=== PATIENT | female | born 1960 | race African-American/Black ===

== ENCOUNTER 2019-07-16 11:35 | Inpatient (IN) | payer MEDICAID ==
[~2019-07-16] VITALS: Ht 162.6 cm; Wt 83.9 kg
[2019-07-16] MEDS ORDERED: VANCOMYCIN 1 G PREMIX 200 ML IV ONE (12:30)
[2019-07-16] MEDS ORDERED: PIPERACILLIN/TAZ 3.375G PREMIX 50 ML IV ONE (12:30)
[2019-07-16] MEDS ORDERED: SODIUM CHLORIDE 0.9% 1000ML BAG (SEPSIS BOLUS) IV ONE (12:30)
[2019-07-16] MEDS ORDERED: KETOROLAC 15MG/ML VIAL IV ONE (12:45)
[2019-07-16 13:18] LABS: BASOPHILS % 0.7 % (0.0-2.0); HEMATOCRIT. 34.1 % (36.0-48.0); HEMOGLOBIN. 11.2 g/dL (12.0-16.0); MEAN CORPUSCULAR HEMOGLOBIN 28.6 pg (28.0-32.0); MEAN CORPUSCULAR VOLUME 87.1 fL (81.0-99.0); MEAN PLATELET VOLUME 7.2 fl (7.4-10.4); MONOCYTES % 11.6 % (2.0-8.0); NEUTROPHILS % 60.7 % (40.0-76.0); PLATELET 384 x1000/uL (130-400); RED BLOOD CELL COUNT 3.91 mill/uL (4.2-5.4); RED CELL DISTRIBUTION WIDTH 15.2 % (11.6-14.6)
[2019-07-16 13:24] LABS: INR 1.1; PROTHROMBIN TIME 11.1 sec (9.6-11.0)
[2019-07-16 13:25] LABS: CHLORIDE 103 mEq/L (98-107)
[2019-07-16 16:19] LABS: CLARITY URINE TURBID (CLEAR); COLOR URINE YELLOW (YELLOW); KETONES URINE NEGATIVE (NEGATIVE); LEUKOCYTE ESTERASE URINE 3+ (NEGATIVE); NITRITE URINE POSITIVE (NEGATIVE); OCCULT BLOOD URINE 3+ (NEGATIVE); PH URINE 5.5 (4.5-8.0); PROTEIN URINE 1+ (NEGATIVE); SPECIFIC GRAVITY URINE 1.015 (1.005-1.030); UROBILINOGEN URINE 0.2 E.U./dL (0.2-1.0)
[2019-07-16] MEDS ORDERED: CLONIDINE 0.1MG TABLET PO PRN (19:15)
[2019-07-16] MEDS ORDERED: DOCUSATE SODIUM 100MG CAPSULE PO PRN (19:15)
[2019-07-16] MEDS ORDERED: ACETAMINOPHEN 650MG/20.3ML UDC GT PRN (19:15)
[2019-07-16] MEDS ORDERED: ONDANSETRON HCL 4MG/2ML INJ IV PRN (19:15)
[2019-07-16] MEDS ORDERED: HYDROCODONE/ACETAMINOPHEN 10/325MG TABLET PO PRN (19:15)
[2019-07-16] MEDS ORDERED: IPRATROPIUM/ALBUTEROL 0.5-3(2.5)MG/3ML NEB HHN PRN (19:15)
[2019-07-16] MEDS ORDERED: HYDROCODONE/ACETAMINOPHEN 5/325MG TABLET PO PRN (19:15)
[2019-07-16] MEDS ORDERED: ACETAMINOPHEN 650MG SUPP PR PRN (19:15)
[2019-07-16] MEDS ORDERED: NA PHOS,M-B/NA PHOS,DI-BA ENEMA 118ML PR PRN (19:15)
[2019-07-16] MEDS ORDERED: DIPHENHYDRAMINE 50MG/ML VIAL IV PRN (19:15)
[2019-07-16] MEDS ORDERED: MAGNESIUM/ALUMINUM HYDROXIDE/SIMETHICONE 30ML UDC PO PRN (19:15)
[2019-07-16] MEDS ORDERED: GUAIFENESIN 200MG/10ML SUGAR FREE UDC PO PRN (19:15)
[2019-07-16] MEDS ORDERED: ACETAMINOPHEN 325MG TABLET PO PRN (19:15)
[2019-07-16] MEDS ORDERED: ENOXAPARIN 40MG/0.4ML SYR SUBCUT SCH (19:15)
[2019-07-16 21:45] VITALS: BP 102/63
[2019-07-16] MEDS ORDERED: SODIUM CHLORIDE 0.9% INJ 3ML FLUSH IVF SCH (22:00)
[2019-07-16] MEDS ORDERED: LEVOFLOXACIN 500MG PREMIX 100 ML IV NR (23:00)
[2019-07-17] VITALS: BP 99/62
[2019-07-17] MEDS: SODIUM CHLORIDE 0.45% 1,000 ML IV SCH ×2 (00:38→20:39)
[2019-07-17] MEDS: ENOXAPARIN 30MG/0.3ML SYR SUBCUT SCH ×3 (00:40→20:40)
[2019-07-17] MEDS ORDERED: VIRE PO (02:38)
[2019-07-17] MEDS ORDERED: NIFE10CA PO (02:38)
[2019-07-17] MEDS ORDERED: OMEP20TA15 PO (02:38)
[2019-07-17] MEDS ORDERED: CITA10TA16 PO (02:38)
[2019-07-17] MEDS ORDERED: LISI40TA4 PO (02:38)
[2019-07-17] MEDS ORDERED: FLUT9.9S NS (02:38)
[2019-07-17] MEDS ORDERED: LOPI1TAB PO (02:38)
[2019-07-17] MEDS ORDERED: MULT-1146 PO (02:38)
[2019-07-17] MEDS ORDERED: FERR325T6 PO (02:38)
[2019-07-17] MEDS ORDERED: ATOR20TA PO (02:38)
[2019-07-17] MEDS ORDERED: GEMF600T5 PO (02:38)
[2019-07-17] MEDS ORDERED: POTA-81 PO (02:38)
[2019-07-17 08:00] VITALS: BP 102/55
[2019-07-17 08:35] LABS: CHLORIDE 106 mEq/L (98-107)
[2019-07-17 08:45] LABS: HDL CHOLESTEROL 39 mg/dL (40-59); LDL CHOLESTEROL 149 mg/dL (5-100)
[2019-07-17] MEDS ORDERED: CEPH-569 MT (11:42)
[2019-07-17] MEDS ORDERED: SODIUM POLYSTYRENE SULFONATE 15 G/60 ML BOT PO NR (12:00)
[2019-07-17] MEDS ORDERED: LEVOFLOXACIN 500MG PREMIX 100 ML IV SCH (14:00)
[2019-07-17 16:00] VITALS: BP 100/57
[2019-07-17 16:17] LABS: BASOPHILS % 0.4 % (0.0-2.0); EOSINOPHILS % 1.7 % (0.0-5.0); HEMATOCRIT. 32.8 % (36.0-48.0); HEMOGLOBIN. 10.7 g/dL (12.0-16.0); LYMPHOCYTES % 24.8 % (20.0-50.0); MEAN CORPUSCULAR HEMOGLOBIN 28.5 pg (28.0-32.0); MEAN CORPUSCULAR VOLUME 87.2 fL (81.0-99.0); MEAN PLATELET VOLUME 7.2 fl (7.4-10.4); MONOCYTES % 9.9 % (2.0-8.0); NEUTROPHILS % 63.2 % (40.0-76.0); PLATELET 343 x1000/uL (130-400); RED BLOOD CELL COUNT 3.77 mill/uL (4.2-5.4); RED CELL DISTRIBUTION WIDTH 14.9 % (11.6-14.6)
[2019-07-17] MEDS: VANCOMYCIN 1 G PREMIX 200 ML IV SCH (18:50)
[2019-07-17 20:00] VITALS: BP 119/53
[2019-07-18] VITALS: BP 107/64
[2019-07-18 04:00] VITALS: BP 128/73
[2019-07-18] MEDS: VANCOMYCIN 1 G PREMIX 200 ML IV SCH (05:50)
[2019-07-18 08:00] VITALS: BP 108/67
[2019-07-18] MEDS ORDERED: ENOXAPARIN 40MG/0.4ML SYR SUBCUT SCH (09:00)
[2019-07-18] MEDS ORDERED: MERO1VIA IV (15:18)
[2019-07-18] MEDS: SODIUM CHLORIDE 0.45% 1,000 ML IV SCH (15:35)
[2019-07-18 17:30] LABS: BASOPHILS % 0.4 % (0.0-2.0); EOSINOPHILS % 1.3 % (0.0-5.0); HEMATOCRIT. 31.9 % (36.0-48.0); HEMOGLOBIN. 10.5 g/dL (12.0-16.0); LYMPHOCYTES % 21.1 % (20.0-50.0); MEAN CORPUSCULAR HEMOGLOBIN 28.2 pg (28.0-32.0); MEAN CORPUSCULAR VOLUME 85.7 fL (81.0-99.0); MEAN PLATELET VOLUME 6.7 fl (7.4-10.4); MONOCYTES % 7.6 % (2.0-8.0); NEUTROPHILS % 69.6 % (40.0-76.0); PLATELET 393 x1000/uL (130-400); RED BLOOD CELL COUNT 3.73 mill/uL (4.2-5.4); RED CELL DISTRIBUTION WIDTH 14.9 % (11.6-14.6)
[2019-07-18 17:35] LABS: CHLORIDE 104 mEq/L (98-107)
[2019-07-18] MEDS ORDERED: MEROPENEM 1000MG in NORMAL SALINE 100ML IV SCH (18:00)
[2019-07-18 20:00] VITALS: BP 110/72
== END 2019-07-18 20:55 | DRG 463 ==
LOC: ER 11:35 → 7WST 15:54 → ENRESERV 20:09
PROVIDERS: ADMIT Family Medicine; ATTEND Family Medicine
DX: N13.6 Pyonephrosis (principal); G81.91 Hemiplegia, unspecified affecting right dominant side; D25.9 Leiomyoma of uterus, unspecified; E11.9 Type 2 diabetes mellitus without complications; E66.9 Obesity, unspecified; E78.5 Hyperlipidemia, unspecified; I10 Essential (primary) hypertension; E78.00 Pure hypercholesterolemia, unspecified; K44.9 Diaphragmatic hernia without obstruction or gangrene; Z74.01 Bed confinement status; Z86.73 Personal history of transient ischemic attack (TIA), and cerebral infarction without residual deficits; Z68.31 Body mass index [BMI] 31.0-31.9, adult; Z79.899 Other long term (current) drug therapy
CPT/HCPCS: 36415; 71045; 74176; 80053; 80061; 81003; 82962; 83605; 83880; 84145; 84484; 85025; 87077; 87186; 93005; 99285; J1650; J1885; J1956; J2185; J2543; J3370; J7030; A4315